=== PATIENT | female | born 1965 | race American Indian/Alaskan Native ===

== ENCOUNTER 2018-09-09 08:11 | Emergency (ER) | payer MEDICARE ==
[2018-09-09 10:11] LABS: Basophils % (Auto) 1.2 % (0.0-1.8); Eosinophils # (Auto) 0.1 K/mm3 (0.0-0.4); Eosinophils % (Auto) 2.2 % (0.0-4.3); Hematocrit 38.2 % (30.3-42.9); Hemoglobin 12.9 gm/dl (10.1-14.3); Lymphocytes # (Auto) 1.2 K/mm3 (1.2-5.4); Lymphocytes % (Auto) 49.1 % (13.4-35.0); Mean Corpuscular HGB Conc 34 % (30-34); Mean Corpuscular Volume 92 fl (79-97); Monocytes # (Auto) 0.2 K/mm3 (0.0-0.8); Monocytes % (Auto) 7.9 % (0.0-7.3); Platelet Count 237 K/mm3 (140-440); Red Blood Count 4.15 M/mm3 (3.65-5.03); Red Cell Distribution Width 14.4 % (13.2-15.2)
[2018-09-09] MEDS ORDERED: ZOFRAN IV ONE (10:14)
[2018-09-09] MEDS ORDERED: NACL 0.9% 1000 ML 1,000 ML IV ONE (10:14)
[2018-09-09] MEDS ORDERED: DILAUDID IV ONE ×2 (10:14→11:49)
[2018-09-09 10:40] LABS: Alanine Aminotransferase 31 units/L (7-56); Albumin 4.7 g/dL (3.9-5); BUN/Creatinine Ratio 9; Blood Urea Nitrogen 9 mg/dL (7-17); Calcium 8.8 mg/dL (8.4-10.2); Hemolysis Index 14
[2018-09-09 12:41] LABS: Bacteria,Urine 1+ /HPF (Negative); Bilirubin,Urine NEG (Negative); Blood,Urine NEG (Negative); Color,Urine Yellow (Yellow); Urobilinogen,Urine < 2.0 mg/dL (<2.0)
[2018-09-09 13:15] VITALS: BP 170/120
--- NOTE | 2018-09-09 13:35 | Emergency Department Report ---
ED General Adult HPI - General Chief complaint: Sickle Cell Crisis Stated complaint: SICKLE CELL PAIN Time Seen by Provider: 09/09/18 09:08 Source: patient Mode of arrival: Ambulatory Limitations: No Limitations - History of Present Illness Initial comments: Patient presents to the emergency department with a chief complaint sickle cell pain. The patient recently moved from [place] and is out of her pain medication at home. The patient complains of lower back and bilateral leg pain which consistent with her prior sickle cell crisis flareups. She denies any chest pain, shortness breath, or headache. -: Gradual Location: back, lower extremity Severity scale (0 -10): 4 Quality: aching Consistency: constant Improves with: none Worsens with: none Associated Symptoms: denies other symptoms Treatments Prior to Arrival: none - Related Data Previous Rx's Medication Instructions Recorded Last Taken Type Oxycodone HCl/Acetaminophen 1 each PO Q6HR PRN #12 tablet 09/09/18 Unknown Rx [Percocet 7.5/325 mg] Allergies Allergy/AdvReac Type Severity Reaction Status Date / Time fentanyl Allergy Rash Verified 09/09/18 08:15 morphine Allergy Rash Verified 09/09/18 08:15 ED Review of Systems ROS: Stated complaint: SICKLE CELL PAIN Other details as noted in HPI Comment: All other systems reviewed and negative Constitutional: denies: chills, fever Eyes: denies: eye pain, eye discharge, vision change ENT: denies: ear pain, throat pain Respiratory: denies: cough, shortness of breath, wheezing Cardiovascular: denies: chest pain, palpitations Endocrine: no symptoms reported Gastrointestinal: denies: abdominal pain, nausea, diarrhea Genitourinary: denies: urgency, dysuria, discharge Musculoskeletal: denies: back pain, joint swelling, arthralgia Skin: denies: rash, lesions Neurological: denies: headache, weakness, paresthesias Psychiatric: denies: anxiety, depression Hematological/Lymphatic: denies: easy bleeding, easy bruising ED Past Medical Hx - Past Medical History Previous Medical History?: Yes Hx Hypertension: Yes Hx Seizures: Yes Additional medical history: Graves disease. - Surgical History Past Surgical History?: Yes Additional Surgical History: C section - Social History Smoking Status: Former Smoker Substance Use Type: Alcohol, Prescribed - Medications Home Medications: Home Medications Medication Instructions Recorded Confirmed Last Taken Type Oxycodone HCl/Acetaminophen 1 each PO Q6HR PRN #12 tablet 09/09/18 Unknown Rx [Percocet 7.5/325 mg] ED Physical Exam - General Limitations: No Limitations General appearance: alert, in no apparent distress - Head Head exam: Present: atraumatic, normocephalic - Eye Eye exam: Present: normal appearance, PERRL, EOMI - ENT ENT exam: Present: mucous membranes dry - Neck Neck exam: Present: normal inspection - Respiratory Respiratory exam: Present: normal lung sounds bilaterally. Absent: respiratory distress, wheezes, rales - Cardiovascular Cardiovascular Exam: Present: regular rate, normal rhythm. Absent: systolic murmur, diastolic murmur, rubs, gallop - GI/Abdominal GI/Abdominal exam: Present: soft, normal bowel sounds. Absent: distended, tenderness - Extremities Exam Extremities exam: Present: normal inspection - Back Exam Back exam: Present: normal inspection - Neurological Exam Neurological exam: Present: alert, oriented X3, CN II-XII intact. Absent: motor sensory deficit - Psychiatric Psychiatric exam: Present: normal affect, normal mood - Skin Skin exam: Present: warm, dry, intact, normal color. Absent: rash ED Course Vital Signs 09/09/18 09/09/18 09/09/18 08:19 09:05 09:19 Temperature 97.4 F L Pulse Rate 104 H 74 Respiratory 20 16 16 Rate Blood Pressure 159/119 Blood Pressure 147/105 [Left] O2 Sat by Pulse 100 99 99 Oximetry 09/09/18 09/09/18 12:08 13:14 Temperature Pulse Rate 86 Respiratory 18 16 Rate Blood Pressure Blood Pressure 173/119 170/120 [Left] O2 Sat by Pulse 100 Oximetry ED Medical Decision Making - Lab Data Result diagrams: 09/09/18 09:45 09/09/18 09:45 Lab Results 09/09/18 09/09/18 09/09/18 Range/Units 09:45 09:45 12:08 WBC 2.5 L (4.5-11.0) K/mm3 RBC 4.15 (3.65-5.03) M/mm3 Hgb 12.9 (10.1-14.3) gm/dl Hct 38.2 (30.3-42.9) % MCV 92 (79-97) fl MCH 31 (28-32) pg MCHC 34 (30-34) % RDW 14.4 (13.2-15.2) % Plt Count 237 (140-440) K/mm3 Lymph % (Auto) 49.1 H (13.4-35.0) % [place] % (Auto) 7.9 H (0.0-7.3) % Eos % (Auto) 2.2 (0.0-4.3) % Baso % (Auto) 1.2 (0.0-1.8) % Lymph # 1.2 (1.2-5.4) K/mm3 [place] # 0.2 (0.0-0.8) K/mm3 Eos # 0.1 (0.0-0.4) K/mm3 Baso # 0.0 (0.0-0.1) K/mm3 Seg Neutrophils % 39.6 L (40.0-70.0) % Seg Neutrophils # 1.0 L (1.8-7.7) K/mm3 Percent Retic 0.68 L (0.78-2.58) % Sodium 141 (137-145) mmol/L Potassium 3.4 L (3.6-5.0) mmol/L Chloride 100.9 (98-107) mmol/L Carbon Dioxide 27 (22-30) mmol/L Anion Gap 17 mmol/L BUN 9 (7-17) mg/dL Creatinine 1.0 (0.7-1.2) mg/dL Estimated GFR > 60 ml/min BUN/Creatinine Ratio 9 % Glucose 96 (65-100) mg/dL Calcium 8.8 (8.4-10.2) mg/dL Total Bilirubin 0.40 (0.1-1.2) mg/dL AST 45 H (5-40) units/L ALT 31 (7-56) units/L Alkaline Phosphatase 64 (35-129) units/L Lactate Dehydrogenase 328 H (91-180) units/L Total Protein 8.0 (6.3-8.2) g/dL Albumin 4.7 (3.9-5) g/dL Albumin/Globulin Ratio 1.4 % Urine Color Yellow (Yellow) Urine Turbidity Clear (Clear) Urine pH 6.0 (5.0-7.0) Ur Specific [place] 1.013 (1.003-1.030) Urine Protein 100 mg/dl (Negative) mg/dL Urine Glucose (UA) Neg (Negative) mg/dL Urine Ketones Neg (Negative) mg/dL Urine Blood Neg (Negative) Urine Nitrite Neg (Negative) Urine Bilirubin Neg (Negative) Urine Urobilinogen < 2.0 (<2.0) mg/dL Ur Leukocyte Esterase Neg (Negative) Urine WBC (Auto) 1.0 (0.0-6.0) /HPF Urine RBC (Auto) 2.0 (0.0-6.0) /HPF U Epithel Cells (Auto) 3.0 (0-13.0) /HPF Urine Bacteria (Auto) 1+ (Negative) /HPF - Medical Decision Making Patient had relief of symptoms with IV pain medications and fluids Critical care attestation.: If time is entered above; I have spent that time in minutes in the direct care of this critically ill patient, excluding procedure time. ED Disposition Clinical Impression: Sickle cell pain crisis Disposition: TO HOME OR SELFCARE Is pt being admited?: No Does the pt Need Aspirin: No Condition: Stable Instructions: Sickle Cell Crisis (ED) Additional Instructions: return if worse Prescriptions: Oxycodone HCl/Acetaminophen [Percocet 7.5/325 mg] 1 each PO Q6HR PRN #12 tablet PRN Reason: Pain Referrals: INDERJIT THAKKAR MD [Primary Care Provider] - 3-5 Days [facility] [Provider Group] - 3-5 Days [facility] [Provider Group] - 3-5 Days [facility] [Outside] - 3-5 Days [facility] [Provider Group] - 3-5 Days Time of Disposition: 13:36
[2018-09-09] MEDS ORDERED: FLUSH HEPARIN IV ONE ×2 (13:45→13:52)
== END 2018-09-09 13:47 | disposition home or self-care (01) ==
LOC: ED 08:11
DX: D57.00 Hb-SS disease with crisis, unspecified (principal); I10 Essential (primary) hypertension; Z88.5 Allergy status to narcotic agent; Z87.891 Personal history of nicotine dependence
CPT/HCPCS: 36415; 80053; 81001; 83615; 85025; 85045; 96374; 96375; 96376; 99283; J1170; J1642; J2405; J7030

== ENCOUNTER 2018-10-01 16:50 | Emergency (ER) | payer MEDICARE ==
--- NOTE | 2018-10-01 17:16 | Emergency Department Report ---
Blank Doc - Documentation Documentation: This is a 53-year-old female that presents with generalized pain due to sickle cell. This initial assessment/diagnostic orders/clinical plan/treatment(s) is/are subject to change based on patient's health status, clinical progression and re- assessment by fellow clinical providers in the ED. Further treatment and workup at subsequent clinical providers discretion. Patient/guardians urged not to elope from the ED as their condition may be serious if not clinically assessed and managed. Initial orders include: 1- Patient sent to MAIN ED for further evaluation and treatment 2- labs
[2018-10-01] MEDS ORDERED: BENADRYL IV ONE (23:23)
[2018-10-01] MEDS ORDERED: TORADOL IV ONE (23:23)
[2018-10-01] MEDS ORDERED: DILAUDID IV ONE (23:23)
[2018-10-01] MEDS ORDERED: ZOFRAN IV ONE (23:23)
[2018-10-01 23:40] LABS: Alanine Aminotransferase 9 units/L (7-56); Albumin 4.5 g/dL (3.9-5); BUN/Creatinine Ratio 10; Blood Urea Nitrogen 8 mg/dL (7-17); Hemolysis Index 0
--- NOTE | 2018-10-01 23:40 | Emergency Department Report ---
ED General Adult HPI - General Chief complaint: Sickle Cell Crisis Stated complaint: SICKLE CELL CRISIS/PAIN Time Seen by Provider: 10/01/18 17:15 Source: patient, old records reviewed Mode of arrival: Ambulatory Limitations: No Limitations - History of Present Illness Initial comments: 53-year-old female the past medical history sickle cell [place], hypertension, Graves disease presents to the hospital complaints of pain secondary to sickle cell crisis 1 day. Patient has lower back pain and generalized arthralgias. She denies chest pain, shortness of breath, dysuria, or fever. She does not have any pain medication at home. She states she just moved here from [place] and does not have a local investigations consultant. She was seen here september 09 for sickle cell crisis and received percocet 12 tablets. [place] prescription monitoring site reviewed. Patient filled a script for Hysingla ER 30mg tablets 30 day supply on 09/16/2018 described by a PA in [place]. It appears that the patient was seeing physician Juan Luis Carter and receiving a 30 day supply of Hysingla ER for chronic pain management as well as frequent Percocet prescriptions. Patient states she ran out of her Hysingla because she was taking extra tablets because she did not have the Percocet for breakthrough pain. Therefore she is currently out of all her pain medication. Patient's been compliant with her amlodipine and Coreg. Severity scale (0 -10): 10 - Related Data Previous Rx's Medication Instructions Recorded Last Taken Type Oxycodone HCl/Acetaminophen 1 each PO Q6HR PRN #15 tablet 10/02/18 Unknown Rx [Percocet 7.5/325 mg] Potassium Chloride [K-Dur] 20 meq PO BID #6 tab 10/02/18 Unknown Rx Allergies Allergy/AdvReac Type Severity Reaction Status Date / Time fentanyl Allergy Rash Verified 09/09/18 13:55 morphine Allergy Rash Verified 09/09/18 13:55 ED Review of Systems ROS: Stated complaint: SICKLE CELL CRISIS/PAIN Other details as noted in HPI Comment: All other systems reviewed and negative ED Past Medical Hx - Past Medical History Previous Medical History?: Yes Hx Hypertension: Yes Hx Sickle Cell Disease: Yes Hx Seizures: Yes Additional medical history: Graves disease. - Surgical History Past Surgical History?: Yes Additional Surgical History: C section - Social History Smoking Status: Never Smoker Substance Use Type: None - Medications Home Medications: Home Medications Medication Instructions Recorded Confirmed Last Taken Type Oxycodone HCl/Acetaminophen 1 each PO Q6HR PRN #15 tablet 10/02/18 Unknown Rx [Percocet 7.5/325 mg] Potassium Chloride [K-Dur] 20 meq PO BID #6 tab 10/02/18 Unknown Rx ED Physical Exam - General Limitations: No Limitations - Other Other exam information: General: No limitations, patient is alert in no acute distress Head exam: Atraumatic, normocephalic Eyes exam: Normal appearance ENT: Moist mucous membrane Neck exam: Normal inspection, full range of motion, no meningismus nontender Respiratory exam: Clear to auscultation bilateral, no wheezes, rales, crackles Cardiovascular: Mild tachycardia, poor to chest wall, chest wall nontender Abdomen: Soft, nondistended, and nontender, with normal bowel sounds, no rebound, or guarding Extremity: Full range of motion normal inspection no deformity Back: Normal Inspection, full range of motion, no tenderness Neurologic: Alert, oriented x3, cranial nerves intact, no motor or sensory deficit Psychiatric: normal affect, normal mood Skin: Warm, dry, intact ED Course Vital Signs 10/01/18 10/01/18 10/02/18 17:16 22:38 00:01 Temperature 98.6 F 98.5 F Pulse Rate 115 H 105 H 104 H Respiratory 18 21 18 Rate Blood Pressure 145/100 Blood Pressure 172/108 162/110 [Left] O2 Sat by Pulse 98 100 97 Oximetry 10/02/18 01:08 Temperature Pulse Rate 94 H Respiratory 16 Rate Blood Pressure Blood Pressure 141/91 [Left] O2 Sat by Pulse 100 Oximetry ED Medical Decision Making - Lab Data Result diagrams: 10/01/18 23:05 10/01/18 23:05 Lab Results 10/01/18 10/01/18 10/01/18 Range/Units 23:05 23:05 23:08 WBC 4.4 L (4.5-11.0) K/mm3 RBC 3.67 (3.65-5.03) M/mm3 Hgb 11.8 (10.1-14.3) gm/dl Hct 34.3 (30.3-42.9) % MCV 94 (79-97) fl MCH 32 (28-32) pg MCHC 34 (30-34) % RDW 15.7 H (13.2-15.2) % Plt Count 291 (140-440) K/mm3 Lymph % (Auto) 32.9 (13.4-35.0) % [place] % (Auto) 10.2 H (0.0-7.3) % Eos % (Auto) 0.7 (0.0-4.3) % Baso % (Auto) 1.1 (0.0-1.8) % Lymph # 1.5 (1.2-5.4) K/mm3 [place] # 0.5 (0.0-0.8) K/mm3 Eos # 0.0 (0.0-0.4) K/mm3 Baso # 0.0 (0.0-0.1) K/mm3 Seg Neutrophils % 55.1 (40.0-70.0) % Seg Neutrophils # 2.4 (1.8-7.7) K/mm3 Percent Retic 2.34 (0.78-2.58) % Sodium 143 (137-145) mmol/L Potassium 3.0 L (3.6-5.0) mmol/L Chloride 105.4 (98-107) mmol/L Carbon Dioxide 23 (22-30) mmol/L Anion Gap 18 mmol/L BUN 8 (7-17) mg/dL Creatinine 0.8 (0.7-1.2) mg/dL Estimated GFR > 60 ml/min BUN/Creatinine Ratio 10 % Glucose 116 H (65-100) mg/dL Calcium 9.0 (8.4-10.2) mg/dL Total Bilirubin 0.50 (0.1-1.2) mg/dL AST 14 (5-40) units/L ALT 9 (7-56) units/L Alkaline Phosphatase 73 (35-129) units/L Total Protein 8.0 (6.3-8.2) g/dL Albumin 4.5 (3.9-5) g/dL Albumin/Globulin Ratio 1.3 % Urine Color Yellow (Yellow) Urine Turbidity Cloudy (Clear) Urine pH 6.0 (5.0-7.0) Ur Specific [place] 1.013 (1.003-1.030) Urine Protein <15 mg/dl (Negative) mg/dL Urine Glucose (UA) Neg (Negative) mg/dL Urine Ketones Neg (Negative) mg/dL Urine Blood Neg (Negative) Urine Nitrite Neg (Negative) Urine Bilirubin Neg (Negative) Urine Urobilinogen < 2.0 (<2.0) mg/dL Ur Leukocyte Esterase Tr (Negative) Urine WBC (Auto) 6.0 (0.0-6.0) /HPF Urine RBC (Auto) 3.0 (0.0-6.0) /HPF U Epithel Cells (Auto) 40.0 H (0-13.0) /HPF Urine Bacteria (Auto) 2+ (Negative) /HPF Urine Mucus Few /HPF - Medical Decision Making BP heart rate improved with pain reduction. Patient did not require clonidine. Labs normal. Pain controlled. Patient be discharged with metastases meds. Encouraged to obtain a investigations consultant ANNALEE for her chronic pain management. Patient received by mouth potassium for mild hypokalemia - Differential Diagnosis sickle cell crisis, drug-seeking, chronic pain, anemia Critical Care Time: No Critical care attestation.: If time is entered above; I have spent that time in minutes in the direct care of this critically ill patient, excluding procedure time. ED Disposition Clinical Impression: Sickle cell crisis, Hypokalemia Disposition: TO HOME OR SELFCARE Is pt being admited?: No Does the pt Need Aspirin: No Condition: Stable Instructions: Sickle Cell Crisis (ED), Hypokalemia (ED) Additional Instructions: Take the medication as prescribed. Follow up with your doctor or the clinic/doctor provided. Return if symptoms worsen as indicated by your discharge instructions Prescriptions: Potassium Chloride [K-Dur] 20 meq PO BID #6 tab Oxycodone HCl/Acetaminophen [Percocet 7.5/325 mg] 1 each PO Q6HR PRN #15 tablet PRN Reason: Pain Referrals: INDERJIT THAKKAR MD [Primary Care Provider] - 3-5 Days CHAN NAVA MD [Staff Physician] - 3-5 Days ([employer] Consultant) Time of Disposition: 01:28
[2018-10-01] MEDS ORDERED: K-DUR PO ONE (23:41)
[2018-10-01 23:45] LABS: Bacteria,Urine 2+ /HPF (Negative); Bilirubin,Urine NEG (Negative); Blood,Urine NEG (Negative); Color,Urine Yellow (Yellow); Mucus,Urine FEW /HPF; Protein,Urine <15 mg/dL mg/dL (Negative); Urobilinogen,Urine < 2.0 mg/dL (<2.0)
[2018-10-01] MEDS ORDERED: D5NS 0.2% 1,000 ML IV SCH (23:45)
[2018-10-01 23:58] LABS: Basophils % (Auto) 1.1 % (0.0-1.8); Eosinophils % (Auto) 0.7 % (0.0-4.3); Hematocrit 34.3 % (30.3-42.9); Hemoglobin 11.8 gm/dl (10.1-14.3); Lymphocytes # (Auto) 1.5 K/mm3 (1.2-5.4); Lymphocytes % (Auto) 32.9 % (13.4-35.0); Mean Corpuscular HGB Conc 34 % (30-34); Mean Corpuscular Volume 94 fl (79-97); Monocytes # (Auto) 0.5 K/mm3 (0.0-0.8); Monocytes % (Auto) 10.2 % (0.0-7.3); Platelet Count 291 K/mm3 (140-440); Red Blood Count 3.67 M/mm3 (3.65-5.03); Red Cell Distribution Width 15.7 % (13.2-15.2)
[2018-10-02] MEDS ORDERED: CATAPRES PO ONE (00:33)
[2018-10-02 05:04] VITALS: BP 150/105
== END 2018-10-02 04:10 | disposition home or self-care (01) ==
LOC: ED 16:50
DX: D57.00 Hb-SS disease with crisis, unspecified (principal); E87.6 Hypokalemia; I10 Essential (primary) hypertension; Z88.5 Allergy status to narcotic agent; Z88.8 Allergy status to other drugs, medicaments and biological substances
CPT/HCPCS: 36415; 80053; 81001; 85025; 85045; 85660; 96374; 96375; 99284; J1170; J1200; J1885; J2405; 96361

== ENCOUNTER 2018-11-14 11:02 | Emergency (ER) | payer MEDICARE ==
--- NOTE | 2018-11-14 11:25 | Event Note ---
ED Screening Note ED Screening Note: SSD HTN GERD co back, leg, and head pain; sob and some cp off and on for weeks new to area rx PPI phenergan/reglan/oxy norvasc coreg out of her folic acid/hydroxyuria This initial assessment/diagnostic orders/clinical plan/treatment(s) is/are subject to change based on patients health status, clinical progression and re- assessment by fellow clinical providers in the ED. Further treatment and workup at subsequent clinical providers discretion. Patient/guardian urged not to elope from the ED as their condition may be serious if not clinically assessed and managed. Initial orders include: labs fluid pain meds
[2018-11-14] MEDS ORDERED: NACL 0.9% 1000 ML 1,000 ML IV ONE (11:27)
[2018-11-14] MEDS ORDERED: TORADOL IV ONE (16:37)
--- NOTE | 2018-11-14 16:39 | Emergency Department Report ---
ED General Adult HPI - General Chief complaint: Sickle Cell Crisis Stated complaint: BODY PAIN/HPB Time Seen by Provider: 11/14/18 11:24 Source: patient Mode of arrival: Ambulatory Limitations: No Limitations - History of Present Illness Initial comments: Patient is 53 years old female with history of sickle cell disease. Patient presented to the ER complaining of generalized body pain for 1 week. Patient denied any fever or chills. No chest pain or shortness of breath. -: week(s) Location: back, upper extremity, lower extremity Severity scale (0 -10): 10 Quality: sharp Consistency: intermittent Associated Symptoms: denies other symptoms - Related Data Allergies Allergy/AdvReac Type Severity Reaction Status Date / Time fentanyl Allergy Rash Verified 11/14/18 11:24 morphine Allergy Rash Verified 11/14/18 11:24 ED Review of Systems ROS: Stated complaint: BODY PAIN/HPB Other details as noted in HPI Comment: All other systems reviewed and negative Constitutional: denies: chills, fever Respiratory: denies: cough, orthopnea, shortness of breath, SOB with exertion, SOB at rest, wheezing Cardiovascular: denies: chest pain, palpitations Gastrointestinal: denies: abdominal pain, nausea, vomiting Musculoskeletal: arthralgia, myalgia Neurological: denies: headache, weakness, numbness, paresthesias, confusion, abnormal gait ED Past Medical Hx - Past Medical History Previous Medical History?: Yes Hx Hypertension: Yes Hx Sickle Cell Disease: Yes Hx Seizures: Yes Additional medical history: Graves disease. - Surgical History Past Surgical History?: Yes Additional Surgical History: C section - Social History Smoking Status: Never Smoker Substance Use Type: None ED Physical Exam - General Limitations: No Limitations General appearance: alert, in no apparent distress - Head Head exam: Present: atraumatic, normocephalic, normal inspection - Eye Eye exam: Present: normal appearance, PERRL - ENT ENT exam: Present: normal exam, normal orophraynx, mucous membranes moist - Neck Neck exam: Present: normal inspection, full ROM. Absent: tenderness, meningismus, lymphadenopathy, thyromegaly - Respiratory Respiratory exam: Present: normal lung sounds bilaterally - Cardiovascular Cardiovascular Exam: Present: regular rate, normal rhythm, normal heart sounds - GI/Abdominal GI/Abdominal exam: Present: soft, normal bowel sounds. Absent: distended, tenderness, guarding, rebound, rigid, organomegaly, mass, bruit, pulsatile mass, hernia - Extremities Exam Extremities exam: Present: normal inspection, full ROM, normal capillary refill. Absent: pedal edema, calf tenderness - Back Exam Back exam: Present: normal inspection, full ROM. Absent: tenderness, CVA tenderness (R), CVA tenderness (L), muscle spasm, paraspinal tenderness, vertebral tenderness - Neurological Exam Neurological exam: Present: alert, oriented X3, CN II-XII intact, normal gait, reflexes normal - Psychiatric Psychiatric exam: Present: normal mood - Skin Skin exam: Present: warm, intact, normal color ED Course Vital Signs 11/14/18 11:24 Temperature 97.9 F Pulse Rate 99 H Respiratory 16 Rate Blood Pressure 157/90 [Right] O2 Sat by Pulse 98 Oximetry ED Medical Decision Making - Lab Data Result diagrams: 11/14/18 16:46 11/14/18 16:46 - EKG Data -: EKG Interpreted by Ut EKG shows normal: sinus rhythm Rate: normal - EKG Data Interpretation: no acute changes - Medical Decision Making Patient is 53 years old female with history of sickle cell disease. Patient presented to the ER complaining of generalized body pain for 1 week. Patient denied any fever or chills. No chest pain or shortness of breath. Patient received normal saline 1 L, Toradol 30 IV. Labs reviewed and is unremarkable with a reticulocyte count of 1.08%. No evidence of sickle cell crisis. Patient discharged home in stable clinical condition. Patient advised to follow-up with hand ironer in the next 2-3 days and return to the ER if she develops any new symptoms. Critical care attestation.: If time is entered above; I have spent that time in minutes in the direct care of this critically ill patient, excluding procedure time. ED Disposition Clinical Impression: Sickle cell disease, Generalized pain Disposition: DC-01 TO HOME OR SELFCARE Is pt being admited?: No Condition: Stable Instructions: Sickle Cell Crisis (ED) Referrals: INDERJIT THAKKAR MD [Primary Care Provider] - 3-5 Days
[2018-11-14] MEDS ORDERED: NACL 0.9% 1000 ML 1,000 ML ONE (17:09)
[2018-11-14 17:24] LABS: Basophils # (Auto) 0.1 K/mm3 (0.0-0.1); Basophils % (Auto) 1.8 % (0.0-1.8); Eosinophils # (Auto) 0.1 K/mm3 (0.0-0.4); Eosinophils % (Auto) 2.2 % (0.0-4.3); Hematocrit 36.6 % (30.3-42.9); Hemoglobin 12.3 gm/dl (10.1-14.3); Lymphocytes # (Auto) 1.3 K/mm3 (1.2-5.4); Lymphocytes % (Auto) 40.9 % (13.4-35.0); Mean Corpuscular HGB Conc 34 % (30-34); Mean Corpuscular Volume 91 fl (79-97); Monocytes # (Auto) 0.3 K/mm3 (0.0-0.8); Monocytes % (Auto) 8.9 % (0.0-7.3); Platelet Count 288 K/mm3 (140-440); Red Blood Count 4.01 M/mm3 (3.65-5.03); Red Cell Distribution Width 13.7 % (13.2-15.2)
[2018-11-14 17:34] LABS: BUN/Creatinine Ratio 10; Blood Urea Nitrogen 7 mg/dL (7-17); Calcium 8.7 mg/dL (8.4-10.2); Hemolysis Index 10
[2018-11-14 18:49] VITALS: BP 170/97
== END 2018-11-14 18:48 | disposition home or self-care (01) ==
LOC: ED 11:02
DX: D57.1 Sickle-cell disease without crisis (principal); I10 Essential (primary) hypertension; E05.00 Thyrotoxicosis with diffuse goiter without thyrotoxic crisis or storm; Z98.890 Other specified postprocedural states; Z88.6 Allergy status to analgesic agent
CPT/HCPCS: 36415; 80048; 84484; 85025; 85045; 93005; 93010; 96374; 99283; J1885; J7030; 96361

== ENCOUNTER 2019-05-11 07:42 | Emergency (ER) | payer MEDICARE ==
[2019-05-11] MEDS ORDERED: ASPIRIN 325 MG TAB PO ONE (08:08)
--- NOTE | 2019-05-11 08:50 | XRay Report ---
CHEST 2 VIEWS INDICATION / CLINICAL INFORMATION: Chest Pain. COMPARISON: None available. FINDINGS: SUPPORT DEVICES: Right internal jugular Port-A-Cath has tip in SVC HEART / MEDIASTINUM: No significant abnormality. LUNGS / PLEURA: No significant pulmonary or pleural abnormality. No pneumothorax. ADDITIONAL FINDINGS: No significant additional findings. IMPRESSION: 1. No acute findings. Signer Name: Saud Lyn MD Signed: 05/11/2019 8:46 AM Workstation Name: [id number]
[2019-05-11 09:04] LABS: BUN/Creatinine Ratio 7; Blood Urea Nitrogen 4 mg/dL (7-17); Hemolysis Index 25
[2019-05-11] MEDS ORDERED: SODIUM CHLORIDE 0.9% 1000 ML 1,000 ML IV ONE ×2 (12:54→14:19)
[2019-05-11] MEDS ORDERED: KETOROLAC 30 MG/1 ML INJ IV ONE (12:54)
[2019-05-11] MEDS ORDERED: cloNIDine 0.1 MG TAB PO ONE (12:55)
[2019-05-11 13:54] LABS: Basophils % (Auto) 1.1 % (0.0-1.8); Eosinophils % (Auto) 0.7 % (0.0-4.3); Hematocrit 38.4 % (30.3-42.9); Hemoglobin 12.7 gm/dl (10.1-14.3); Lymphocytes # (Auto) 0.9 K/mm3 (1.2-5.4); Mean Corpuscular HGB Conc 33 % (30-34); Mean Corpuscular Volume 89 fl (79-97); Monocytes # (Auto) 0.5 K/mm3 (0.0-0.8); Monocytes % (Auto) 15.9 % (0.0-7.3); Platelet Count 251 K/mm3 (140-440); Red Blood Count 4.33 M/mm3 (3.65-5.03); Red Cell Distribution Width 15.2 % (13.2-15.2)
--- NOTE | 2019-05-11 14:38 | Emergency Department Report ---
<JAMES GUTIERREZ P - Last Filed: 05/11/19 14:48> ED General Adult HPI - General Chief complaint: Sore Throat Stated complaint: HBP/SOB/BODY PAIN Time Seen by Provider: 05/11/19 12:46 Source: patient Mode of arrival: Ambulatory Limitations: No Limitations - History of Present Illness Initial comments: Patient reports sore throat, body aches for approximately 4 days. Reports hx of sickle cell and hypothyroid. Patient reports she is worried her thyroid might be the cause of her problems. Reports possible sick contacts at work. Severity scale (0 -10): 9 - Related Data Previous Rx's Medication Instructions Recorded Last Taken Type Ketorolac [Toradol] 10 mg PO Q6H PRN #20 tablet 11/14/18 Unknown Rx Allergies Allergy/AdvReac Type Severity Reaction Status Date / Time fentanyl Allergy Rash Verified 11/14/18 11:24 morphine Allergy Rash Verified 11/14/18 11:24 ED Review of Systems Other: GENERAL: No weight change, fatigue, fever, chills, or night sweats SKIN: No changes in skin or hair, no itching, no rashes, no jaundice HEAD: No trauma EYES: No blurriness, tearing, itching, acute visual loss, conjunctival discoloration, or scleral icterus EARS: No hearing loss, tinnitus, vertigo, or earache NOSE: No rhinorrhea, stuffiness, sneezing, itching, or epistaxis MOUTH: Sore throat. No bleeding gums, hoarseness, or swelling CARDIAC: No new murmur, chest pain, palpitations, dyspnea on exertion, orthopnea, PND, or edema RESPIRATORY: No shortness of breath, wheeze, cough, sputum production, hemoptysis GI: No abdominal pain, nausea, vomiting, dysphagia, diarrhea, constipation, hematemesis, melena, hematochezia URINARY: No frequency, urgency, polyuria, dysuria, hematuria, or incontinence MUSCULOSKELETAL: Body aches. No muscle weakness, joint stiffness, decrease in range of motion, redness, swelling NEUROLOGIC: No headache, syncope, loss of sensation, numbness, tingling, tremors, weakness, paralysis, seizures HEMATOLOGIC: No anemia, easy bruising, bleeding, petechiae, or purpura ENDOCRINE: No hot or cold intolerance, sweating, polyuria, polydipsia or, polyphagia no thyroid problems PSYCHIATRIC: No change in mood, no anxiety, no depression ED Past Medical Hx - Past Medical History Previous Medical History?: Yes Hx Hypertension: Yes Hx Sickle Cell Disease: Yes Hx Seizures: Yes Additional medical history: Graves disease. - Surgical History Past Surgical History?: Yes Additional Surgical History: C section, hysterectomy - Social History Smoking Status: Never Smoker Substance Use Type: None - Medications Home Medications: Home Medications Medication Instructions Recorded Confirmed Last Taken Type Ketorolac [Toradol] 10 mg PO Q6H PRN #20 tablet 11/14/18 Unknown Rx ED Physical Exam - General Limitations: No Limitations - Other Other exam information: GENERAL: Patient in no acute distress HEAD: Normocephalic, atraumatic EYES: PERRLA, EOM intact, no scleral icterus, no conjunctival hemorrhage, visual vela and acuity wnl NOSE: No tenderness, discharge, sinus tenderness MOUTH: No erythema, bleeding, exudate HEART: Tachycardia, no murmur, S1-S2 are auscultated, no edema, pulses are s ymmetric LUNGS: No respiratory distress. Bilateral breath sounds, No tachypnea, No retractions, No wheezing, rales, rhonchi ABDOMEN: Normal bowel sounds, abdomen soft, no tenderness, no rebound, no gu arding, no distention, no masses, no CVA tenderness MUSCULOSKELETAL: Normal joint range of motion, no redness, no swelling, no tenderness NEUROLOGIC: GCS 15, Alert and Oriented x3, Cranial nerves intact, normal sensation, normal strength, no cerebellar deficit, NIHSS 0 SKIN: Skin is warm and dry, no wounds, no rashes ED Medical Decision Making - Lab Data Result diagrams: 05/11/19 13:34 05/11/19 08:29 Laboratory Results - last 24 hr 05/11/19 05/11/19 05/11/19 08:29 08:29 13:34 WBC 3.3 L RBC 4.33 Hgb 12.7 Hct 38.4 MCV 89 MCH 29 MCHC 33 RDW 15.2 Plt Count 251 Lymph % (Auto) 26.0 [place] % (Auto) 15.9 H Eos % (Auto) 0.7 Baso % (Auto) 1.1 Lymph # 0.9 L [place] # 0.5 Eos # 0.0 Baso # 0.0 Seg Neutrophils % 56.3 Seg Neutrophils # 1.9 Percent Retic Sodium 139 Potassium 3.8 Chloride 104.6 Carbon Dioxide 18 L Anion Gap 20 BUN 4 L Creatinine 0.6 L Estimated GFR > 60 BUN/Creatinine Ratio 7 Glucose 137 H Calcium 9.0 Troponin T < 0.010 TSH 0.131 L 05/11/19 05/11/19 13:34 13:34 WBC RBC Hgb Hct MCV MCH MCHC RDW Plt Count Lymph % (Auto) [place] % (Auto) Eos % (Auto) Baso % (Auto) Lymph # [place] # Eos # Baso # Seg Neutrophils % Seg Neutrophils # Percent Retic 2.06 Sodium Potassium Chloride Carbon Dioxide Anion Gap BUN Creatinine Estimated GFR BUN/Creatinine Ratio Glucose Calcium Troponin T < 0.010 TSH - EKG Data Rate: tachycardia - Radiology Data Radiology results: report reviewed - Medical Decision Making Suspect hyperthyroidism in this patient. Plan treat propanolol and IVFs. If T4 elevated, and HR reduces, plan discharge with coreg vs propanolol script and outpatient follow up. Dr. Cuellar updated and agrees to follow up results and re- evaluation. ED Disposition Clinical Impression: Sore throat, Hyperthyroidism, Tachycardia Disposition: TO HOME OR SELFCARE Condition: Stable Instructions: Hyperthyroidism (ED), Sickle Cell Crisis (ED), Pharyngitis (ED) Additional Instructions: Please follow up with your primary care physician regarding your symptoms and the finding of hyperthyroidism today. Since you are on levothyroxine, a thyroid supplement, this medication could potentially be too strong. Please speak to your primary care physician about how to proceed with this medication. You may need a counselor education professor. Return to the emergency Department with any worsening of your symptoms or any acute distress. Referrals: PRIMARY CARE, [Primary Care Provider] - 2-3 Days <FOSTER CUELLAR - Last Filed: 05/11/19 16:40> ED Review of Systems ROS: Stated complaint: HBP/SOB/BODY PAIN Other details as noted in HPI ED Course Vital Signs 05/11/19 05/11/19 05/11/19 08:04 13:05 13:25 Temperature 98.9 F Pulse Rate 124 H 126 H 127 H Respiratory 18 18 Rate Blood Pressure 165/107 136/85 Blood Pressure 146/90 [Left] O2 Sat by Pulse 100 97 Oximetry 05/11/19 05/11/19 05/11/19 14:00 15:14 16:00 Temperature Pulse Rate 124 H 117 H Respiratory 18 18 Rate Blood Pressure 115/64 Blood Pressure 144/95 [Left] O2 Sat by Pulse 97 97 Oximetry ED Medical Decision Making - Lab Data Result diagrams: 05/11/19 13:34 05/11/19 08:29 - Medical Decision Making I reevaluated this patient and she appears safe for discharge home at this time. The patient does have a low TSH with an elevated free T4 level showing signs of hyperthyroidism. However the patient has a history of Graves' disease and usually is hypothyroid and she is on levothyroxine. It is possible that this medication is too strong of a dose for her and could be causing her symptoms. The patient says that she is on Coreg and thinks that her primary care physician has called and a prescription for propanolol. Patient was given some IV fluid resuscitation and a dose of pain medication and is feeling improved. She still has some residual tachycardia but has come down from presentation. The patient has no complaints of any chest pain, palpitations, shortness of breath. She has good follow-up with PCP. She has been instructed to return to the emergency department immediately with any worsening of her symptoms or any acute distress. Critical care attestation.: If time is entered above; I have spent that time in minutes in the direct care of this critically ill patient, excluding procedure time. ED Disposition Is pt being admited?: No
[2019-05-11] MEDS ORDERED: PROPRANOLOL 1 MG/1 ML INJ IV ONE (14:42)
[2019-05-11 15:25] LABS: Bilirubin,Urine NEG (Negative); Blood,Urine NEG (Negative); Color,Urine Yellow (Yellow); Protein,Urine <15 mg/dL mg/dL (Negative); Urobilinogen,Urine < 2.0 mg/dL (<2.0); WBC,Urine < 1.0 /HPF (0.0-6.0)
[2019-05-11 15:32] LABS: Amphetamine Screen,Urine PRESUMPTIVE NEGATIVE; Benzodiazepines Screen,Urine PRESUMPTIVE NEGATIVE; Cannabinoid Screen,Urine PRESUMPTIVE NEGATIVE; Cocaine Screen,Urine PRESUMPTIVE NEGATIVE; Methadone Screen,Urine PRESUMPTIVE NEGATIVE; Opiate Screen,Urine PRESUMPTIVE NEGATIVE
[2019-05-11] MEDS ORDERED: HYDROmorphone 1 MG/1 ML INJ IV ONE (16:02)
[2019-05-11 17:08] VITALS: BP 152/91
== END 2019-05-11 17:35 | disposition home or self-care (01) ==
LOC: ED 07:42
DX: J02.9 Acute pharyngitis, unspecified (principal); R00.0 Tachycardia, unspecified; E05.00 Thyrotoxicosis with diffuse goiter without thyrotoxic crisis or storm; I10 Essential (primary) hypertension; Z90.710 Acquired absence of both cervix and uterus; Z79.899 Other long term (current) drug therapy; Z88.6 Allergy status to analgesic agent
CPT/HCPCS: 36415; 71046; 80048; 80307; 81001; 84439; 84443; 84481; 84484; 85025; 85045; 87116; 87400; 87430; 93005; 93010; 96374; 96375; 99284; J1170; J1642; J1800; J1885; J7030

== ENCOUNTER 2019-07-06 19:21 | Emergency (ER) | payer MEDICARE ==
[2019-07-06] MEDS ORDERED: SODIUM CHLORIDE 0.9% 1000 ML 1,000 ML IV ONE (20:48)
[2019-07-06] MEDS ORDERED: ACETAMINOPHEN 500 MG TAB PO ONE (20:48)
--- NOTE | 2019-07-06 20:52 | Emergency Department Report ---
ED General Adult HPI - General Chief complaint: Upper Respiratory Infection Stated complaint: BODY PAIN,VOMITING, FEVER, RUNNY NOSE Time Seen by Provider: 07/06/19 20:36 Source: patient Mode of arrival: Ambulatory Limitations: No Limitations - History of Present Illness Initial comments: Patient is 54 years old female with history of sickle cell disease. Patient presented to the ER complaining of fever, cough runny nose and generalized body pain. Patient stated the symptoms started 3 days ago. 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 Patient denied any chest pain or shortness of breath. No nausea or vomiting. Patient stated that she checked her temperature this morning and it was 101.2. Patient denied any recent travel in the [place] or outside the [place]. Possibility of COVID-19 is raised and protocol initiated and precaution initiated. Patient moved to a negative pressure room with respiratory isolation. - Related Data Previous Rx's Medication Instructions Recorded Last Taken Type Ketorolac [Toradol] 10 mg PO Q6H PRN #20 tablet 11/14/18 Unknown Rx HYDROcodone/APAP 5-325 [[place] 1 each PO Q6HR PRN #10 tablet 07/07/19 Unknown Rx 5/325] Ondansetron [Zofran Odt] 4 mg PO Q8HR PRN #14 tab.rapdis 07/07/19 Unknown Rx guaiFENesin [Robitussin] 5 ml PO TID PRN #100 ml 07/07/19 Unknown Rx Allergies Allergy/AdvReac Type Severity Reaction Status Date / Time fentanyl Allergy Rash Verified 11/14/18 11:24 morphine Allergy Rash Verified 11/14/18 11:24 ED Review of Systems ROS: Stated complaint: BODY PAIN,VOMITING, FEVER, RUNNY NOSE Other details as noted in HPI Comment: All other systems reviewed and negative Constitutional: chills, fever, malaise Respiratory: cough. denies: shortness of breath, SOB with exertion, wheezing Cardiovascular: palpitations. denies: chest pain Gastrointestinal: denies: abdominal pain, nausea, vomiting, diarrhea, constipation, hematemesis, melena, hematochezia Genitourinary: denies: urgency Musculoskeletal: back pain, myalgia. denies: joint swelling, arthralgia Skin: denies: rash, lesions Neurological: denies: headache, weakness, numbness, paresthesias, confusion, abnormal gait ED Past Medical Hx - Past Medical History Hx Hypertension: Yes Hx Sickle Cell Disease: Yes Hx Seizures: Yes Additional medical history: Graves disease. - Surgical History Additional Surgical History: C section, hysterectomy - Social History Smoking Status: Never Smoker Substance Use Type: None - Medications Home Medications: Home Medications Medication Instructions Recorded Confirmed Last Taken Type Ketorolac [Toradol] 10 mg PO Q6H PRN #20 tablet 11/14/18 Unknown Rx HYDROcodone/APAP 5-325 [[place] 1 each PO Q6HR PRN #10 tablet 07/07/19 Unknown Rx 5/325] Ondansetron [Zofran Odt] 4 mg PO Q8HR PRN #14 tab.rapdis 07/07/19 Unknown Rx guaiFENesin [Robitussin] 5 ml PO TID PRN #100 ml 07/07/19 Unknown Rx ED Physical Exam - General Limitations: No Limitations General appearance: alert, in no apparent distress - Head Head exam: Present: atraumatic, normocephalic, normal inspection - Eye Eye exam: Present: normal appearance, PERRL - ENT ENT exam: Present: normal exam, normal orophraynx, mucous membranes moist - Neck Neck exam: Present: normal inspection, full ROM. Absent: tenderness, meningismus, lymphadenopathy, thyromegaly - Respiratory Respiratory exam: Present: normal lung sounds bilaterally - Cardiovascular Cardiovascular Exam: Present: regular rate, normal rhythm, normal heart sounds - GI/Abdominal GI/Abdominal exam: Present: soft, normal bowel sounds. Absent: distended, tenderness, guarding, rebound, rigid, organomegaly, mass, bruit, pulsatile mass, hernia - Extremities Exam Extremities exam: Present: normal inspection, full ROM, normal capillary refill. Absent: pedal edema, calf tenderness - Back Exam Back exam: Present: normal inspection, full ROM. Absent: CVA tenderness (R), CVA tenderness (L), muscle spasm, paraspinal tenderness, vertebral tenderness - Neurological Exam Neurological exam: Present: alert, oriented X3, CN II-XII intact, normal gait, reflexes normal. Absent: motor sensory deficit - Psychiatric Psychiatric exam: Present: normal affect - Skin Skin exam: Present: warm, intact, normal color ED Course Vital Signs 07/06/19 07/06/19 07/06/19 19:31 21:07 21:15 Temperature 98.9 F Pulse Rate 113 H 102 H 100 H Respiratory 18 12 19 Rate Blood Pressure 125/80 127/79 Blood Pressure [Left] O2 Sat by Pulse 100 100 Oximetry 07/06/19 07/06/19 07/06/19 21:28 21:31 21:45 Temperature 98.5 F Pulse Rate 105 H 99 H 102 H Respiratory 12 20 16 Rate Blood Pressure 127/79 127/79 Blood Pressure 127/79 [Left] O2 Sat by Pulse 99 98 100 Oximetry 07/06/19 07/06/19 07/06/19 22:00 22:16 22:30 Temperature Pulse Rate 102 H 102 H 101 H Respiratory 22 19 19 Rate Blood Pressure 127/79 130/89 Blood Pressure [Left] O2 Sat by Pulse 100 100 100 Oximetry 07/06/19 07/06/19 07/06/19 22:46 23:00 23:08 Temperature 98.0 F Pulse Rate 101 H 100 H Respiratory 21 19 Rate Blood Pressure 130/89 125/83 Blood Pressure [Left] O2 Sat by Pulse 99 100 Oximetry 07/07/19 01:20 Temperature 98.2 F Pulse Rate 77 Respiratory 16 Rate Blood Pressure Blood Pressure 138/72 [Left] O2 Sat by Pulse 99 Oximetry ED Medical Decision Making - Lab Data Result diagrams: 07/06/19 21:09 07/06/19 21:09 - Radiology Data Radiology results: report reviewed - Medical Decision Making Patient is 54 years old female with history of sickle cell disease. Patient presented to the ER complaining of fever, cough runny nose and generalized body pain. Patient stated the symptoms started 3 days ago. 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 Patient denied any chest pain or shortness of breath. No nausea or vomiting. Patient stated that she checked her temperature this morning and it was 101.2. Patient denied any recent travel in the [place] or [place] the [place]. Possibility of COVID-19 is raised and protocol initiated and precaution initiated. Patient moved to a negative pressure room with respiratory isolation. Patient labs reviewed and is unremarkable including a negative flu test. Chest x-ray is unremarkable. Public health authorities contacted and a online survey filled and patient to receive a call from [employer] for further testing. No fever noticed in the ER. Patient received normal saline and Dilaudid for her usual sickle cell disease management. Patient reticulocyte is normal. Patient given a detailed discharge instruction printed out from the [facility] website. On the next day I received a email from public health coil winder [employer] stating that patient does not require testing. Critical care attestation.: If time is entered above; I have spent that time in minutes in the direct care of this critically ill patient, excluding procedure time. ED Disposition Clinical Impression: Sickle cell crisis, Respiratory infection Disposition: - TO HOME OR SELFCARE Is pt being admited?: No Condition: Stable Instructions: Sickle Cell Crisis (ED), Upper Respiratory Infection (ED) Prescriptions: HYDROcodone/APAP 5-325 [[place] 5/325] 1 each PO Q6HR PRN #10 tablet PRN Reason: Pain guaiFENesin [Robitussin] 5 ml PO TID PRN #100 ml PRN Reason: Cough Ondansetron [Zofran Odt] 4 mg PO Q8HR PRN #14 tab.rapdis PRN Reason: Nausea And Vomiting Referrals: PRIMARY CARE, [Primary Care Provider] - 3-5 Days
[2019-07-06 21:34] LABS: BUN/Creatinine Ratio 11; Blood Urea Nitrogen 8 mg/dL (7-17); Hemolysis Index 11
[2019-07-06 21:38] LABS: Alanine Aminotransferase 10 units/L (7-56); Basophils % (Auto) 0.4 % (0.0-1.8); Eosinophils # (Auto) 0.1 K/mm3 (0.0-0.4); Eosinophils % (Auto) 0.7 % (0.0-4.3); Hematocrit 35.5 % (30.3-42.9); Hemoglobin 11.7 gm/dl (10.1-14.3); Lymphocytes # (Auto) 1.5 K/mm3 (1.2-5.4); Mean Corpuscular HGB Conc 33 % (30-34); Mean Corpuscular Volume 86 fl (79-97); Monocytes # (Auto) 0.7 K/mm3 (0.0-0.8); Monocytes % (Auto) 7.9 % (0.0-7.3); Platelet Count 319 K/mm3 (140-440); Red Blood Count 4.14 M/mm3 (3.65-5.03); Red Cell Distribution Width 13.2 % (13.2-15.2)
[2019-07-06 21:51] LABS: Bilirubin,Direct < 0.2 mg/dL (0-0.2)
[2019-07-06] MEDS ORDERED: HYDROmorphone 1 MG/1 ML INJ IV ONE (22:09)
[2019-07-06] MEDS ORDERED: ONDANSETRON 4 MG/2 ML INJ IV ONE (22:09)
--- NOTE | 2019-07-06 22:15 | XRay Report ---
CHEST 1 VIEW 9:45 PM INDICATION / CLINICAL INFORMATION: Upper Respiratory Infection. COMPARISON: 05/11/19. FINDINGS: SUPPORT DEVICES: The position of the right jugular Port-A-Cath has not changed. HEART / MEDIASTINUM: The heart size and pulmonary vasculature are normal. LUNGS / PLEURA: No significant pulmonary or pleural abnormality. No pneumothorax. ADDITIONAL FINDINGS: No significant additional findings. IMPRESSION: No acute abnormality or significant change. There is no evidence of pneumonia. Signer Name: Leroy Chavez MD Signed: 07/06/2019 10:10 PM Workstation Name: [id number]
[2019-07-07] MEDS ORDERED: HYDROmorphone 1 MG/1 ML INJ IV ONE (01:00)
[2019-07-07 01:20] VITALS: BP 138/72
== END 2019-07-07 01:21 | disposition home or self-care (01) ==
LOC: ED 19:21
DX: D57.00 Hb-SS disease with crisis, unspecified (principal); J98.8 Other specified respiratory disorders; R52 Pain, unspecified; Z88.6 Allergy status to analgesic agent; Z79.899 Other long term (current) drug therapy; Z86.69 Personal history of other diseases of the nervous system and sense organs; Z90.710 Acquired absence of both cervix and uterus; Z98.890 Other specified postprocedural states
CPT/HCPCS: 36415; 71045; 80048; 80076; 85025; 85045; 87400; 96361; 96374; 96375; 96376; 99284; J1170; J1642; J2405; J7030